=== PATIENT | female | born 1955 | race Caucasian/White ===

== ENCOUNTER 2022-09-05 09:36 | Outpatient (CLI) | payer MEDICARE | END 2022-09-05 09:37 | disposition home or self-care (01) | LOC: CSHMAMMO 09:36 | PROVIDERS: ATTEND Nurse Practitioner | DX: Z12.31 Encounter for screening mammogram for malignant neoplasm of breast (principal); Z91.89 Other specified personal risk factors, not elsewhere classified | CPT/HCPCS: 77063; 77067 ==

== ENCOUNTER 2025-04-16 14:43 | Outpatient (CLI) | payer OTHER | END 2025-04-16 14:44 | disposition home or self-care (01) | LOC: CSHMAMMO 14:43 | PROVIDERS: ATTEND Nurse Practitioner | DX: Z12.31 Encounter for screening mammogram for malignant neoplasm of breast (principal); Z91.89 Other specified personal risk factors, not elsewhere classified | CPT/HCPCS: 77063; 77067 ==